=== PATIENT | female | born 1975 | race Hispanic/Latino ===

== ENCOUNTER 2017-12-07 08:22 | Emergency (ER) | payer OTHER ==
[2017-12-07 08:29] VITALS: BP 144/102
[2017-12-07] MEDS ORDERED: FLEXERIL PO ONE (08:54)
[2017-12-07] MEDS ORDERED: TORADOL IM ONE (08:54)
[2017-12-07] MEDS ORDERED: DECADRON IM ONE (08:54)
--- NOTE | 2017-12-07 08:55 | Emergency Department Report ---
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; TYPES OFTEN NO FALL OR OTHER TRAUMA WORSE TODAY THAN HAS BEEN NO PREVIOUS HX OF NO MEDS AT HOME NO HX HTN NO CP, NAUSEA OR DIAPHORESIS MD Complaint: back pain -: Gradual, days(s) Similar Symptoms Previously: Yes Place: home, work Radiation: other ([place]) Severity: moderate Quality: aching Consistency: constant Improves With: none Worsens With: movement Context: unknown Associated Symptoms: denies: confusion, weakness, chest pain, numbness, difficulty walking, cough, difficulty urinating, diaphoresis, incontinence, fever/chills, constipation, headaches, abdominal pain, loss of appetite, malaise , nausea/vomiting, rash, seizure, shortness of breath, syncope - Related Data Previous Rx's Medication Instructions Recorded Last Taken Type Cyclobenzaprine [Flexeril] 10 mg PO TID PRN #10 tablet 12/07/17 Unknown Rx Naproxen [Naprosyn] 500 mg PO BID PRN #20 tablet 12/07/17 Unknown Rx traMADol [Ultram] 50 mg PO Q6HR PRN #10 tablet 12/07/17 Unknown Rx Allergies Allergy/AdvReac Type Severity Reaction Status Date / Time No Known Allergies Allergy Unverified 12/07/17 08:27 ED Review of Systems ROS: Stated complaint: (L) SHOULDER PAIN ARM Other details as noted in HPI Comment: All other systems reviewed and negative Constitutional: denies: chills, fever Eyes: denies: eye pain ENT: denies: ear pain, throat pain Respiratory: denies: cough, orthopnea Cardiovascular: denies: chest pain, palpitations, dyspnea on exertion Endocrine: denies: flushing, intolerance to cold, intolerance to heat Gastrointestinal: denies: abdominal pain, nausea, vomiting Genitourinary: denies: urgency, dysuria Musculoskeletal: back pain. denies: joint swelling, arthralgia Skin: denies: rash, lesions Neurological: denies: headache, weakness Psychiatric: denies: anxiety, depression Hematological/Lymphatic: denies: easy bleeding ED Past Medical Hx - Past Medical History Previous Medical History?: No - Surgical History Additional Surgical History: C/S - Family History Family history: no significant - Social History Smoking Status: Never Smoker Substance Use Type: None - Medications Home Medications: Home Medications Medication Instructions Recorded Confirmed Last Taken Type Cyclobenzaprine [Flexeril] 10 mg PO TID PRN #10 tablet 12/07/17 Unknown Rx Naproxen [Naprosyn] 500 mg PO BID PRN #20 tablet 12/07/17 Unknown Rx traMADol [Ultram] 50 mg PO Q6HR PRN #10 tablet 12/07/17 Unknown Rx ED Physical Exam - General Limitations: No Limitations General appearance: alert - Head Head exam: Present: atraumatic - Eye Eye exam: Present: normal appearance - ENT ENT exam: Present: mucous membranes moist - Neck Neck exam: Present: normal inspection - Respiratory Respiratory exam: Present: normal lung sounds bilaterally - Cardiovascular Cardiovascular Exam: Present: regular rate, normal heart sounds - GI/Abdominal GI/Abdominal exam: Present: soft, normal bowel sounds - Rectal Rectal exam: Present: deferred - Extremities Exam Extremities exam: Present: normal inspection, full ROM, normal capillary refill. Absent: tenderness - Back Exam Back exam: Present: normal inspection, full ROM, muscle spasm. Absent: tenderness, CVA tenderness (R), CVA tenderness (L), vertebral tenderness, rash noted - Expanded Back Exam Expanded Back exam: Absent: saddle anesthesia 1 - AREA OF PAIN. NO TRAUMA. FULL ROM BUT GUARDED. N/V INTACT. RAPID CAP REFILL. - Neurological Exam Neurological exam: Present: alert, oriented X3, CN II-XII intact, normal gait, reflexes normal. Absent: motor sensory deficit - Expanded Neurological Exam Expanded Best Eye Response ([place]): (4) open spontaneously Best Motor Response ([place]): (6) obeys commands Best Verbal Response ([place]): (5) oriented Piotr Total: 15 - Psychiatric Psychiatric exam: Present: normal affect, normal mood - Skin Skin exam: Present: warm, dry, intact, normal color. Absent: rash ED Course Vital Signs 12/07/17 12/07/17 08:27 09:03 Temperature 97.2 F L Pulse Rate 85 Respiratory 16 16 Rate Blood Pressure 144/102 O2 Sat by Pulse 98 Oximetry - Reevaluation(s) Reevaluation #1: 12/07/17 09:42 132/75 BP ON EXAM HR 88 PAIN DEC W MEDS WILL DC HOME WITH ORTHO FOLLOW UP ED Medical Decision Making - EKG Data EKG shows normal: sinus rhythm - EKG Data When compared to previous EKG there are: no significant change Interpretation: no acute changes - Medical Decision Making 12 LEAD NAP OTHERWISE HEALTHY NO CP OR SOB TRAP L SPASM ON EXAM NO POINT TENDERNESS. NO FALL SUSPECT SOFT TISSUE INJURY THEREFORE NO XRAY TREATED W MEDS AND DEC PAIN WILL DC AND REFER TO ORTHO FOR FOLLOW UP - Differential Diagnosis RO ACS; SOFT TISSUE/MUSCLE SPASM Critical care attestation.: If time is entered above; I have spent that time in minutes in the direct care of this critically ill patient, excluding procedure time. ED Disposition Clinical Impression: Trapezius muscle spasm, Shoulder pain, left Disposition: DC-01 TO HOME OR SELFCARE Is pt being admited?: No Does the pt Need Aspirin: No Condition: Stable Instructions: Muscle Spasm (ED) Additional Instructions: HEAT REST MEDS ORDERED FOLLOW UP WITH ORTHO WILL LIKELY NEED MRI OF SHOULDER TRY TO NOT GUARD ARM SO MUCH FOR THIS WILL MAKE IT SPASM MORE. Prescriptions: Cyclobenzaprine [Flexeril] 10 mg PO TID PRN #10 tablet PRN Reason: Muscle Spasm Naproxen [Naprosyn] 500 mg PO BID PRN #20 tablet PRN Reason: Pain traMADol [Ultram] 50 mg PO Q6HR PRN #10 tablet PRN Reason: Pain Referrals: PEIR RACHEL MD [Primary Care Provider] - 3-5 Days HALLIE BAZAN MD [Staff Physician] - 3-5 Days Time of Disposition: 09:25
[2017-12-07] MEDS ORDERED: NORCO 10/325 PO ONE (09:39)
== END 2017-12-07 09:51 | disposition home or self-care (01) ==
LOC: ED 08:22
DX: M62.838 Other muscle spasm (principal); M25.512 Pain in left shoulder
CPT/HCPCS: 93005; 93010; 96372; 99282; J1100; J1885